=== PATIENT | female | born 1965 | race Caucasian/White ===

== ENCOUNTER 2024-01-27 06:16 | Day surgery (SDC) | payer OTHER ==
[~2024-01-27] VITALS: Ht 162.6 cm; Wt 69.4 kg
[2024-01-27] MEDS: fentaNYL citrate 0.05 MG/ML VIAL IVP ONE (07:48)
[2024-01-27] MEDS ORDERED: fentaNYL citrate 0.05 MG/ML VIAL ONE (07:48)
[2024-01-27] MEDS: LIDOCAINE 2% 100 MG/5 ML UJET TP ONE (07:55)
== END 2024-01-27 08:50 | disposition home or self-care (01) ==
LOC: MDS 06:16 → MMU 06:29 → MDS 08:50
PROVIDERS: ATTEND Internal Medicine Gastroenterology
DX: Z12.11 Encounter for screening for malignant neoplasm of colon (principal); K63.5 Polyp of colon; K57.30 Diverticulosis of large intestine without perforation or abscess without bleeding; I10 Essential (primary) hypertension; Z90.49 Acquired absence of other specified parts of digestive tract; Z79.82 Long term (current) use of aspirin; Z79.899 Other long term (current) drug therapy; Z98.890 Other specified postprocedural states
CPT/HCPCS: 45385; J3010